=== PATIENT | female | born 1995 | race Hispanic/Latino ===

== ENCOUNTER 2020-05-20 13:41 | Inpatient (IN) | payer OTHER ==
[~2020-05-20 13:41] MED LIST: ePHEDrine Sulfate 50 MG/10 ML VIAL ONE
[2020-05-20 14:17] VITALS: BMI 27.4
[2020-05-20] MEDS ORDERED: hydrALAZINE 20 MG/ML VIAL SLOW IVP PRN ×2 (14:34→14:44)
[2020-05-20] MEDS ORDERED: Ondansetron PF 4 MG/2 ML Vial IVP PRN ×2 (14:44→19:56)
[2020-05-20] MEDS ORDERED: Acetaminophen 500 MG TAB PO PRN (14:44)
[2020-05-20] MEDS ORDERED: Diphenoxylate HCl/Atropine Tablet PO PRN ×2 (14:44)
[2020-05-20] MEDS ORDERED: HYDROcodone/Acetaminophen 5/325 mg Tablet PO PRN ×2 (14:44)
[2020-05-20] MEDS ORDERED: Butorphanol Tartrate 1 MG/ML VIAL SLOW IVP PRN (14:44)
[2020-05-20] MEDS ORDERED: Promethazine HCl 25 MG/ML VIAL IM PRN ×2 (14:44→19:56)
[2020-05-20] MEDS ORDERED: Ibuprofen 800 MG TAB PO PRN (14:44)
[2020-05-20] MEDS ORDERED: Misoprostol 200 MCG TAB PR PRN (14:44)
[2020-05-20] MEDS ORDERED: Lidocaine 1% (PF) 30 ML VIAL SC PRN (14:44)
[2020-05-20] MEDS ORDERED: Carboprost 250 MCG/ML AMP IM PRN (14:44)
[2020-05-20] MEDS ORDERED: NS w/ Oxytocin 30 units 500 ML IVPB PRN (15:01)
[2020-05-20] MEDS ORDERED: NS w/ Oxytocin 30 units 500 ML IVPB SCH (15:15)
[2020-05-20] MEDS: Lactated Ringer's 1,000 ML IV SCH (15:35)
[2020-05-20 16:09] LABS: Amphetamine Not Detected (NotDetected); Barbiturates Screen Not Detected (NotDetected); Benzodiazepine Screen Not Detected (NotDetected); Cocaine Metabolite Screen Not Detected (NotDetected); Methadone Not Detected (NotDetected); Methamphetamine Not Detected (NotDetected); Opiate Screen Not Detected (NotDetected); Oxycodone Screen Not Detected (NotDetected); Phencyclidine (PCP) Not Detected (NotDetected); THC/Cannabinoid Screen Not Detected (NotDetected); Tricyclic Screen Not Detected (NotDetected)
[2020-05-20 16:10] LABS: #Basophils 0.1 10x3/uL (0.0-0.2); #Eosinphils 0.1 10x3/uL (0.0-0.5); #Neutrophils 9.1 10x3/uL (1.5-8.4); %Basophils 0.4 % (0.0-2.0); %Eosinophils 0.8 % (0.0-6.0); %Lymphocytes 12.6 % (18.0-47.0); %Monocytes 8.3 % (0.0-10.0); %Neutrophils 76.9 % (40.0-75.0); Hemoglobin 10.1 g/dL (12.0-15.5); Mean Corpuscular HGB CONC 31.5 g/dL (32.0-36.0); Mean Corpuscular Hemoglobin 26.2 pg (27.0-33.0); Mean Corpuscular Volume 83.4 fl (81.6-98.3); Platelet Count 190 10x3/uL (150-450); RBC Distribution Width 13.8 % (11.5-14.5); Red Blood Cell (RBC) Count 3.85 10x6/uL (3.90-5.03); White Blood Cell (WBC) Count 11.9 10x3/uL (3.5-10.5)
[2020-05-20 16:13] LABS: Creatinine, Urine 121.28 mg/dL (47-110); Protein, Urine Random Quant Less than 10 mg/dL (1-14)
[2020-05-20 16:28] LABS: Hep B Surf Ag Non-Reactive S/CO (NonReactive)
[2020-05-20 16:29] LABS: Syphilis Antibody Nonreactive (Nonreactive); Syphilis Antibody Index 0.03 S/CO (<1.00 Non-Reactive)
[2020-05-20 16:36] LABS: HBSAg Index 0.14 S/CO (0-0.99)
[2020-05-20 16:42] LABS: ALT (SGPT) 11 U/L (8-55); AST (SGOT) 15 U/L (5-34); Albumin 3.6 g/dL (3.5-5.0); Alkaline Phosphatase 352 U/L (40-110); Anion Gap 14 mmol/L (10-20); BUN (Urea Nitrogen) 12 mg/dL (7.0-18.7); Bilirubin, Total 0.3 mg/dL (0.2-1.2); Calc. Creatinine Clearance 142 mL/min (70-130); Calcium 8.5 mg/dL (7.8-10.44); Carbon Dioxide 19 mmol/L (22-29); Chloride 106 mmol/L (98-107); Globulin 2.9 g/dL (2.4-3.5); Glucose 77 mg/dL (70-105); Potassium 4.3 mmol/L (3.5-5.1); Protein, Total 6.5 g/dL (6.0-8.3); Sodium 135 mmol/L (136-145)
[2020-05-20] MEDS ORDERED: Fentanyl 4 mcg/Bup 0.1% Cadd 100 ML ONE (19:42)
[2020-05-20] MEDS ORDERED: Naloxone HCl 0.4 mg/ml Vial IVP PRN ×2 (19:56)
[2020-05-20] MEDS ORDERED: Lactated Ringer's 500 ML IV PRN (19:56)
[2020-05-20] MEDS ORDERED: Eucerin (Mineral Oil/Petrolatum,White) 30 gm Jar TOP PRN (19:56)
[2020-05-20] MEDS ORDERED: Fentanyl 100 MCG/2 ML VIAL I-THECAL ONE (19:56)
[2020-05-20] MEDS ORDERED: Acetaminophen 325 MG TAB PO PRN (19:56)
[2020-05-20] MEDS ORDERED: ePHEDrine 50 MG/ML VIAL SLOW IVP PRN (19:56)
[2020-05-20] MEDS ORDERED: diphenhydrAMINE 50 MG/ML VIAL IVP PRN (19:56)
[2020-05-20] MEDS ORDERED: Fentanyl 4 mcg/Bupivacaine 0.1% Cassette 100 ML EPIDURAL SCH (20:00)
[2020-05-20] MEDS ORDERED: Communication Order-Pharmacy FS SCH (20:00)
[2020-05-20] MEDS ORDERED: Fentanyl 100 MCG/2 ML VIAL ONE (20:01)
[2020-05-20] MEDS ORDERED: Bupivacaine 0.5% 10 ML VIAL ONE (20:01)
[2020-05-20] MEDS ORDERED: Misoprostol 200 MCG TAB ONE (23:32)
[2020-05-20] MEDS ORDERED: Carboprost 250 MCG/ML AMP ONE (23:33)
[2020-05-21] MEDS ORDERED: Bisacodyl 10 MG SUPP PR PRN (00:41)
[2020-05-21] MEDS ORDERED: Preparation H Ointment 28 GM TUBE PR PRN (00:41)
[2020-05-21] MEDS ORDERED: hydrALAZINE 20 MG/ML VIAL SLOW IVP PRN (00:41)
[2020-05-21] MEDS ORDERED: Lanolin Ointment 7 GM TUBE TOP PRN (00:41)
[2020-05-21] MEDS ORDERED: Milk Of Magnesia 30 ML UDCUP PO PRN (00:41)
[2020-05-21] MEDS ORDERED: NS / Oxytocin 40 units/1000ml 1,000 ML IV SCH (00:45)
[2020-05-21] MEDS: Lactated Ringer's 1,000 ML IV SCH (03:14)
[2020-05-21] MEDS: Ibuprofen 800 MG TAB PO SCH ×3 (05:11→21:03)
[2020-05-21] MEDS: Benzocaine-Menthol 82.5 ML CAN TOP PRN (05:11)
[2020-05-21 05:52] LABS: SARS-CoV-2 PCR by NAA Not Detected (NotDetected)
[2020-05-21] MEDS: Ferrous Sulfate 325 MG TAB PO SCH ×2 (07:39→16:20)
[2020-05-21] MEDS: Docusate Calcium (SURFAK) 240 MG CAP PO SCH ×2 (08:24→21:04)
[2020-05-21] MEDS: Prenatal Vitamin 1 TAB PO SCH (08:24)
[2020-05-21] MEDS: traMADol HCl 50 MG TAB PO PRN (08:27)
[2020-05-21] MEDS ORDERED: Adacel (T-DAP) 0.5 ML SYRINGE IM ONE (09:00)
[2020-05-22] MEDS: traMADol HCl 50 MG TAB PO PRN (00:02)
[2020-05-22] MEDS: Benzocaine-Menthol 82.5 ML CAN TOP PRN (00:05)
[2020-05-22] MEDS: Ibuprofen 800 MG TAB PO SCH (05:00)
[2020-05-22 07:50] VITALS: BP 133/80; TEMP 97.8
[2020-05-22] MEDS: Ferrous Sulfate 325 MG TAB PO SCH (08:35)
[2020-05-22] MEDS: Prenatal Vitamin 1 TAB PO SCH (08:37)
[2020-05-22] MEDS: Docusate Calcium (SURFAK) 240 MG CAP PO SCH (08:37)
== END 2020-05-22 13:18 | disposition home or self-care (01) | DRG 807 ==
LOC: CSHLD/OP 13:41 → CSHLD 20:02 → CSHPP 05-21 03:00
PROVIDERS: ADMIT Obstetrics & Gynecology; ATTEND Obstetrics & Gynecology
PROC: 10D07Z6 Extraction of Products of Conception, Vacuum, Via Natural or Artificial Opening (ICD-10-PCS; principal; 2020-05-21)
DX: O69.81X0 Labor and delivery complicated by cord around neck, without compression, not applicable or unspecified (principal); O13.4 Gestational [pregnancy-induced] hypertension without significant proteinuria, complicating childbirth; Z20.822 Contact with and (suspected) exposure to COVID-19; O70.0 First degree perineal laceration during delivery; O90.81 Anemia of the puerperium; D64.9 Anemia, unspecified; Z37.0 Single live birth; Z3A.38 38 weeks gestation of pregnancy
CPT/HCPCS: 36415; 80053; 80306; 82570; 84156; 85025; 86780; 86850; 86900; 86901; 87340; 87635; 99285; J2590; J3010; J3490; U0003; U0005